=== PATIENT | female | born 1975 | race Caucasian/White ===

== ENCOUNTER 2016-10-28 13:43 | Emergency (ER) | payer BC, MEDICAID ==
--- NOTE | 2016-11-08 10:22 | ER ---
ADMIT: 10/28/2016 RM/LOC: ER [facility] MR#: [id number] [facility] [address] [place], [place] [address] [place] REG[place] [address] [place] [address] Emergency Room Report SEX: F AGE: 41 : 1975 DATE: 10/28/2016 BRIEF ADDENDUM: Please see my T-sheet for complete review of systems, past medical history, and physical exam. CHIEF COMPLAINT: Vomiting and diarrhea. HISTORY OF PRESENT ILLNESS: This is a pleasant 41-year-old female, who presents to the ER with 10 hours duration of nausea, vomiting, and diarrhea. The patient states she was in to see Dr. Meng earlier this month for some similar pain. She did do a UA, ruled out urinary tract infection and send her home with conservative treatment. She said this pain continues to get worse. She noticed it is worse with food, has settled in the right upper quadrant, initially epigastric. Admits to profuse vomiting with food, some diarrhea. She did note some bright red blood but has had this before secondary to hemorrhoids. She has some associated weakness. No fevers, no chills. No chest pain, no cough, no shortness of breath. PAST MEDICAL HISTORY: Type 2 diabetes and hypertension. She is on phentermine for weight loss. COURSE IN THE EMERGENCY ROOM: The patient was seen and examined. She is afebrile and she is nontoxic. She is in mild amount of distress, complaining of severe right upper quadrant pain. She does have a positive Vega sign. No guarding or rebound noted on exam, so we did get some lab work. White count was 10.6, hemoglobin 16.2, hematocrit 48.6, platelets 395. Sodium 139, potassium 3.9, BUN 22, glucose 114, creatinine 1.2. Urine is somewhat concentrated. No signs of acute infection. Urine preg was negative. RUQ ultrasound revealed several small stones and sludge, but no wall thickening or ductal dilitation. She was given Toradol 15 mg IM as well as 4 mg of Zofran IV in the department. IMPRESSION: Cholelithiasis with right upper quadrant pain. DISPOSITION: The patient was discharged with followup with Dr. Galvan next week. She is to follow a low fat diet, increase her fluids as tolerated. She was given [place] 5/325, #30, 1-2 tabs every 4-6 hours as needed for pain. Also Zofran 4 mg ODT one tab sublingually every 8 hours as needed for pain, #10. She is to return home and rest. Certainly return with any worsening signs or symptoms. Otherwise, follow up with Dr. Galvan next week. JOSSELIN Daniel / Dirk Salgado MD / navi JOB #: [id number] CC: Dirk Salgado MD, Attending Physician Haven Meng MD, Family Physician
== END 2016-10-28 15:15 | disposition home or self-care (01) ==
LOC: ER 13:43
DX: K80.20 Calculus of gallbladder without cholecystitis without obstruction (principal); I10 Essential (primary) hypertension; E11.9 Type 2 diabetes mellitus without complications; Z90.710 Acquired absence of both cervix and uterus; Z79.84 Long term (current) use of oral hypoglycemic drugs

== ENCOUNTER 2016-11-11 08:32 | Day surgery (SDC) | payer BC, MEDICAID ==
[~2016-11-11] VITALS: Ht 162.6 cm; Wt 140.9 kg
--- NOTE | 2016-11-16 11:26 | OR ---
ADMIT: 11/11/2016 RM/LOC: [facility] MR#: [id number] [facility] [address] [place], [place] [address] [place] [address] [place] [address] Operative/Delivery Room Report SEX: F AGE: 41 : 1975 SURGERY DATE: 11/11/2016 SURGEON: Mohan Galvan MD PREOPERATIVE DIAGNOSES: 1. Acute cholecystitis. 2. Cholelithiasis. POSTOPERATIVE DIAGNOSES: 1. Acute cholecystitis. 2. Cholelithiasis. PROCEDURE PERFORMED: Laparoscopic cholecystectomy with intraoperative cholangiogram. BACK FACER: JOSSELIN Webb. ANESTHESIA: General endotracheal with the addition of Marcaine into the wounds postprocedure. ESTIMATED BLOOD LOSS: Less than 10 mL. DESCRIPTION OF PROCEDURE: After appropriate informed consent was obtained, the patient was brought to the operating room. General endotracheal anesthesia was induced. The patient's abdomen was prepped and draped in a sterile fashion. A small infraumbilical incision was created. Veress needle was introduced, and the abdomen was insufflated with CO2. A 5 mm trocar was placed. Camera was introduced and the abdomen was surveyed. She had no intraabdominal adhesions. Three additional ports were placed. The gallbladder was grasped, retracted up over the edge of liver. The infundibulum was grasped and retracted laterally. She did have some omental adhesions up to the gallbladder, these were taken down with cautery. With the gallbladder freed up, then the cystic duct was skeletonized out. It was a very small caliber cystic duct. A single clip was placed on the gallbladder side, a small ductotomy was made. A cholangiogram catheter was introduced and intraoperative cholangiogram was obtained, this revealed prompt emptying of contrast into the duodenum, good filling of right and left hepatic ducts, and a long length of cystic duct. The catheter was then removed. Three clips were placed on cystic duct on the patient's side, and the duct was cut between ADMIT: 11/11/2016 RM/LOC: [facility] MR#: [id number] [address] [address] [place] [address] [place] [address] Operative/Delivery Room Report SEX: F AGE: 41 : 1975 clips. The cystic artery was next identified, clipped, and divided. The gallbladder was then reflected off the liver bed using hook electrocautery. With the gallbladder freed up, it was placed in EndoCatch bag and brought out through the subxiphoid port site. The port was re-introduced, right upper quadrant was inspected. Everything appeared hemostatic. All the wounds were infiltrated with Marcaine. The subxiphoid fascial defect was closed with a [id number] 0 Vicryl suture. The abdomen was next desufflated, ports were removed, skin was closed with 4-0 Monocryl in the subcuticular layer. Sterile dressings were applied. The patient tolerated the procedure well and was taken to the recovery room in stable condition. JOSSELIN Webb, assisted in this entire procedure. His help was necessary for retraction and camera driving. Mohan Galvan MD/ navi JOB #: [id number] CC: Mohan Galvan, Attending Physician Haven Meng, Family Physician
== END 2016-11-11 15:34 | disposition home or self-care (01) ==
LOC: SSS 08:32
PROC: BF03YZZ Plain Radiography of Gallbladder and Bile Ducts using Other Contrast (ICD-10-PCS; principal; 2016-11-11)
PROC: 0FT44ZZ Resection of Gallbladder, Percutaneous Endoscopic Approach (ICD-10-PCS; principal; 2016-11-11)
DX: K81.1 Chronic cholecystitis (principal); J45.909 Unspecified asthma, uncomplicated; I10 Essential (primary) hypertension; K21.9 Gastro-esophageal reflux disease without esophagitis; F41.9 Anxiety disorder, unspecified; M10.9 Gout, unspecified; E11.9 Type 2 diabetes mellitus without complications; E66.01 Morbid (severe) obesity due to excess calories; Z68.43 Body mass index [BMI] 50.0-59.9, adult; Z98.890 Other specified postprocedural states